=== PATIENT | female | born 1955 | race Caucasian/White ===

== ENCOUNTER 2019-02-14 12:02 | Emergency (ER) | payer OTHER ==
[~2019-02-14] VITALS: Wt 68.2 kg
[~2019-02-14 12:02] MED LIST: ACET-141 PO
[2019-02-14 12:15] VITALS: BP 134/63; PULSE 78; RESP 20
== END 2019-02-14 15:11 | disposition home or self-care (01) ==
LOC: E/R 12:02
DX: S82.892A Other fracture of left lower leg, initial encounter for closed fracture (principal); E03.9 Hypothyroidism, unspecified; W01.0XXA Fall on same level from slipping, tripping and stumbling without subsequent striking against object, initial encounter; Y92.9 Unspecified place or not applicable
CPT/HCPCS: 73610; Z7502